=== PATIENT | male | born 1980 | race Caucasian/White ===

== ENCOUNTER 2020-05-30 13:34 | Emergency (ER) | payer OTHER, MEDICAID, SELFPAY ==
[2020-05-30] VITALS (16 sets, daily range): BP systolic 123–161; BP diastolic 84–108; PULSE 82–147; RESP 9–24; TEMP 36.9; O2SAT 91–100
--- NOTE | ~2020-05-30 | XR_ITS ---
EXAMINATION: XR chest 2V DATE: 05/30/2020 13:54 INDICATION: Chest pain and pressure TECHNIQUE: PA and lateral views of the chest are obtained. COMPARISON: 07/13/2005 FINDINGS: There are minimal airspace opacities of the lung bases. There is no pleural effusion or pne umothorax. The cardiomediastinal silhouette is normal. There is mild thoracic spondylosis. IMPRESSION: 1. Minimal airspace opacities of the lung bases, consistent with atelectasis versus pneumonia. Reviewed, dictated and finalized at location A. IMPRESSION: 1. Minimal airspace opacities of the lung bases, consistent with atelectasis ve rsus pneumonia.
--- NOTE | 2020-05-30 13:42 | ECG_ITS ---
Measurements Intervals [place] Rate: 137 P: 65 MN: 141 QRS: 78 QRSD: 93 T: 49 QT: 292 QTc: 441 Interpretive Statements SINUS TACHYCARDIA BORDERLINE T WAVE ABNORMALITY- INFERIOR LEADS ABNORMAL ECG Electronically Signed On 05-30-2020 13:52:46 CDT by Varun Sheridan D.O.
[2020-05-30 14:23] LABS: Basophils Absolute Auto 0.1 K/mm3 (0.0-0.1); Basophils Percent Auto 0.7 % (0.2-1.2); Eosinophils Absolute Auto 0.5 K/mm3 (0-0.3); Eosinophils Percent Auto 5.5 % (0-4.4); Hemoglobin 15.5 g/dL (14.0-18.0); Immature Granulocyte Absolute 0.07 K/mm3 (0.00-0.031); Immature Granulocyte Percent A 0.8 % (0-0.5); Lymphocytes Absolute Auto 2.13 K/mm3 (0.9-3.2); Lymphocytes Percent Auto 23.3 % (18.3-44.2); Mean Corpuscular HGB Conc 33.7 g/dl (32-36); Mean Corpuscular Hemoglobin 29.7 pg (26-34); Mean Corpuscular Volume 88.1 fl (80-100); Mean Platelet Volume 9.6 fl (7.4-10.4); Monocytes Absolute Auto 0.7 K/mm3 (0.1-0.6); Monocytes Percent Auto 7.5 % (2.6-8.5); Neutrophils Absolute Auto 5.7 K/mm3 (1.3-6.7); Neutrophils Percent Auto 62.2 % (45.5-73.1); Platelet Count Result 279 k/mm3 (150-375); Red Blood Count 5.22 M/mm3 (4.6-6.20); Red Cell Distribution Width 12.3 % (11.5-14.5); White Blood Count 9.2 K/mm3 (4.5-10.0)
[2020-05-30 14:35] LABS: Anion Gap 11.4 mmol/L (7-16); Blood Urea Nitrogen 12 mg/dL (9-20); Calcium 9.5 mg/dL (8.4-10.2); Carbon Dioxide 31 mmol/L (22-30); Chloride 100 mmol/L (98-107); Estimated CRCL calculation 174 ml/min; Estimated Glomerular Filt Rate > 60; Glucose 105 mg/dL (75-110); Potassium 4.4 mmol/L (3.4-5.0); Prothrombin Time 12.6 Seconds (11.1-14.7); Sodium 138 mmol/L (137-145)
[2020-05-30 14:36] LABS: Partial Thromboplastin Time 27.5 SECONDS (22.3-36.8)
[2020-05-30 14:42] LABS: D Dimer < 0.22 ug/mL (<0.48)
[2020-05-30] MEDS: KETOROLAC 15 MG/ML VIAL (*BKC) IV PUSH (14:45)
[2020-05-30 14:46] LABS: Troponin I < 0.012 ng/mL (0.000-0.034)
[2020-05-30 15:40] LABS: Amphetamine Screen Urine Negative (Negative); Barbiturate Screen Urine Negative (Negative); Benzodiazepines Screen Urine Negative (Negative); Cannabinoid Screen Urine Negative (Negative); Cocaine Screen Urine Negative (Negative); Methadone Screen Urine Negative (Negative); Opiate Screen Urine Positive (Negative); Phencyclidine Screen Urine Negative (Negative)
--- NOTE | 2020-05-30 15:59 | ED.CHESTPAIN ---
HPI - Chest Pain General Chief Complaint: Chest Pain Stated Complaint: CP/SOB Time Seen by Provider: 05/30/20 13:52 Source: patient Mode of arrival: EMS Limitations: no limitations History of Present Illness HPI narrative: Patient presents for evaluation for central chest pain that began while reaching into the microwave. Patient states that the pain initially felt as if he took his breath away and so he paused and then resolved pain he began moving his in and the pain returned. Patient states that he called EMS because he was concerned. Patient denies history of [place], stroke. Patient denies smoking, drinking alcohol, using recreational drugs. Patient states the discomfort worsens with inspiration. Patient denies any radiation of the pain into his left arm or jaw. Patient denies any pain to his bilateral calves. 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 Patient takes gabapentin and oxycodone for those symptoms. Patient was given 4 aspirin and a nitro via EMS states he did not notice change in his discomfort. Related Data Home Medications Medication Instructions Recorded Confirmed gabapentin 300 mg PO TID 05/30/20 05/30/20 oxycodone 10 mg PO Q8H PRN 05/30/20 05/30/20 Allergies Allergy/AdvReac Type Severity Reaction Status Date / Time peanut Allergy Mild Unknown Verified 05/30/20 13:38 Penicillins Allergy Unknown Unknown Verified 05/30/20 13:38 Review of Systems Review of Systems: Narrative: CONSTITUTIONAL: Denies fever, chills, or sweats. EYES: Denies visual changes, redness, or discharge. ENT: Denies rhinorrhea, congestion, sore throat, or otalgia. CARDIOVASCULAR: Reports chest pain chest pain with inspiration, denies palpitations, or edema. RESPIRATORY: Denies cough or dyspnea. GASTROINTESTINAL: Denies abdominal pain, nausea, vomiting, or diarrhea. GENITOURINARY: Denies dysuria or hematuria. SKIN: Denies rash or itching. MUSCULOSKELETAL: Denies back pain, joint pain, or myalgia. NEUROLOGIC: Denies headache, numbness, dizziness, or weakness. PSYCHIATRIC: Denies anxiety or depression. [facility] Social History Social History Smoking status: Never smoker Alcohol intake: never Gender identity (if verbalized by the patient): Male Exam Narrative: Exam Narrative: GENERAL: Well-appearing, well-nourished, and in no acute distress. Patient obese. HEAD: Normocephalic, atraumatic. EYES: PERRLA and EOMI. ENT: Nares clear, no rhinorrhea or epistaxis. Mucous membranes moist. Oropharynx without tonsillar hypertrophy exudate or other lesions. Bilateral TMs pearly masterson nonbulging NECK: Supple. No adenopathy or masses. CHEST: Clear to auscultation. No respiratory distress. No wheezes rales or rhonchi. Patient speaking complete sentences and is not tachypneic or short of breath. HEART: Regular rate and rhythm. Patient pressing on his chest substernally. EXTREMITIES: Normal range of motion. No edema. SKIN: Warm, dry, no rash. NEURO: No focal deficits. Alert and oriented x3. PSYCH: Normal mood and affect. Course Vital Signs Vital signs: Vital Signs Temperature 98.4 F 05/30/20 13:35 Pulse Rate 147 H 05/30/20 13:35 Respiratory Rate 16 05/30/20 13:35 Blood Pressure 148/95 H 05/30/20 13:35 Pulse Oximetry 98 05/30/20 13:35 Temperature 98.4 F 05/30/20 13:35 Pulse Rate 91 05/30/20 18:10 Respiratory Rate 19 05/30/20 18:10 Blood Pressure 136/88 05/30/20 18:10 Pulse Oximetry 100 05/30/20 18:10 MDM - Chest Pain MDM Narrative Medical decision making narrative: Patient has been ambulating about ED without any signs of distress. Patients labs have been insignificant especially troponin and ddimer. EKG showed sinus tachycardia, Dr Stephen is not concerned for new etiology. Patient noticed improvement in discomfort with toradol. His heart
[2020-05-30 17:19] LABS: Troponin I < 0.012 ng/mL (0.000-0.034)
== END 2020-05-30 18:12 | disposition home or self-care (01) ==
PROVIDERS: Physician Assistant; Emergency Provider Emergency Medicine; PCP Internal Medicine
DX: R07.9 Chest pain, unspecified (principal); L03.114 Cellulitis of left upper limb; R00.0 Tachycardia, unspecified; R94.31 Abnormal electrocardiogram [ECG] [EKG]
CPT/HCPCS: 36415; 71046; 80048; 80307; 84484; 85025; 85380; 85610; 85730; 93005; 96374; 99284; J1885

== ENCOUNTER 2020-09-23 06:44 | Emergency (ER) | payer OTHER, MEDICAID, SELFPAY ==
--- NOTE | ~2020-09-23 | CT_ITS ---
EXAMINATION: CT thoracic spine wo con EXAM DATE: 09/23/2020 08:42 INDICATION: No known recent injury provided at this time. Pain of the mid back TECHNIQUE: Spiral CT thoracic spine wo con was performed without contrast. Axial, coronal and sagit octavio images were reviewed. The dose-length product (DLP) for this examination was 1801.89 mGy-cm. Th e exposure was tailored according to patient size (auto mA exposure control), and iterative reconstru ction (ASIR) was used as additional dose reduction technique. There is no prior study for comparison . FINDINGS: Mild diffuse thoracic disc disease and arthropathy without evidence of central canal or leidy ral foraminal stenosis. No endplate erosive change, no evidence of discitis or osteomyelitis. The aryan tebral bodies are aligned in the AP dimension. Incidental congenital aberrant right subclavian artery . Lumbar fusion hardware. There are no acute fractures identified. Paraspinal soft tissue is unrema rkable. IMPRESSION: Mild thoracic spondylosis. No acute findings. Reviewed, dictated and finalized at location A. GHT COORDINATOR
[2020-09-23 06:48] VITALS: BP 157/101; PULSE 85; RESP 14; TEMP 36.6; O2SAT 99
[2020-09-23] MEDS: diazePAM INJ (*CRX) 10 MG/2 ML SYRINGE IM (07:43)
--- NOTE | 2020-09-23 08:22 | ED.BACK ---
HPI - Back Pain/Injury General Chief Complaint: Back Pain/Injury Stated Complaint: back pain Time Seen by Provider: 09/23/20 07:04 History of Present Illness HPI Narrative: 39 yo male w/ h/o chronic low back pain s/p fusion, morbid obesity presents to the ED for thoracic back pain. He reports that he was putting up santi decorations when he developed sever pain in the mid back on the left side. The pain is worse with movement. Prevents him from sleeping. Tried taking his usual painmedications without relief. No weakness, numbness, fever. Related Data Home Medications Medication Instructions Recorded Confirmed gabapentin 300 mg PO TID 05/30/20 05/30/20 oxycodone 10 mg PO Q8H PRN 05/30/20 05/30/20 Allergies Allergy/AdvReac Type Severity Reaction Status Date / Time peanut Allergy Mild Unknown Verified 05/30/20 13:38 Penicillins Allergy Unknown Unknown Verified 05/30/20 13:38 fentanyl Allergy Anaphylactic Verified 09/23/20 07:13 Shock morphine Allergy Hives Verified 09/23/20 07:13 Review of Systems Review of Systems: All systems reviewed & are unremarkable except as noted in HPI and below Constitutional: Constitutional: Denies chills and Denies fever(s) Cardiovascular: Cardiovascular: Denies chest pain Respiratory: Respiratory: Denies dyspnea Gastrointestinal: Gastrointestinal: Denies abdominal pain Genitourinary: Genitourinary: Denies hematuria and Denies dysuria Musculoskeletal: Musculoskeletal: Reports back pain Neurologic: Denies numbness and Denies weakness [facility] Past Medical History Medical History Chronic low back pain Fusion of lumbar spine Social History Social History Smoking status: Never smoker Alcohol intake: never Gender identity (if verbalized by the patient): Male Exam Const: General: no acute distress Nutritional Appearance: obese Orientation/consciousness: patient oriented x3 HENMT: Head: normal to inspection Resp: Effort & Inspection: normal respiratory effort Auscultation: clear to auscultation bilaterally Cardio: Rate: regular rate Rhythm: regular rhythm GI: GI Palp: Yes Soft to palpation and No Tenderness to palpation present (GI) Back/Spine/Pelvis: Other: Tnderness in left paraspinal muscles and chest wall of the mid thoracic spine Skin: General skin exam: normal color Neuro: General: patient oriented x3, moves all extremities and no focal motor deficits Speech: normal speech Gait exam (Neuro): Normal gait present Extrem: General: normal to inspection Course Vital Signs Vital signs: Vital Signs Temperature 36.6 C 09/23/20 06:48 Pulse Rate 85 09/23/20 06:48 Respiratory Rate 14 09/23/20 06:48 Blood Pressure 157/101 H 09/23/20 06:48 Pulse Oximetry 99 09/23/20 06:48 Temperature 36.6 C 09/23/20 06:48 Pulse Rate 85 09/23/20 06:48 Respiratory Rate 14 09/23/20 06:48 Blood Pressure 157/101 H 09/23/20 06:48 Pulse Oximetry 99 09/23/20 06:48 MDM - Back Pain/Injury MDM Narrative Medical decision making narrative: He has a good story and exam for thoracic strain. Exam benign. Nothing acute on CT. Medical Records Attestation: I reviewed the patient's medical records. Imaging Data Radiologist's impression: ITS Impressions Thoracic Spine CT 09/23/20 08:46 IMPRESSION: Mild thoracic spondylosis. No acute findings. Discharge Plan Discharge Clinical Impression: Strain of thoracic back region Patient Disposition: Home, Self-Care Condition: Stable Instructions: Thoracic Back Strain (ED) Prescriptions: New diazepam [Valium] 2 mg tablet 2 - 4 mg PO TID PRN (Reason: muscle spasm) Qty: 10 RF: 0 No Action gabapentin 300 mg Capsule 300 mg PO TID RF: 0 oxycodone 10 mg Tablet 10 mg PO Q8H PRN (Reason: Pain, Mild) RF: 0 naproxen 500 mg tablet 500 m
== END 2020-09-23 09:16 | disposition home or self-care (01) ==
PROVIDERS: Emergency Provider Emergency Medicine; PCP Internal Medicine
DX: S29.012A Strain of muscle and tendon of back wall of thorax, initial encounter (principal); M47.814 Spondylosis without myelopathy or radiculopathy, thoracic region; E66.01 Morbid (severe) obesity due to excess calories; Z68.42 Body mass index [BMI] 45.0-49.9, adult; Z98.1 Arthrodesis status; M54.5 Low back pain; G89.29 Other chronic pain; X50.9XXA Other and unspecified overexertion or strenuous movements or postures, initial encounter
CPT/HCPCS: 72128; 96372; 99284; J3360